=== PATIENT | male | born 1925 | race Caucasian/White ===

== ENCOUNTER 2017-03-06 15:39 | Observation (INO) | payer OTHER, MEDICARE ==
[~2017-03-06] VITALS: Ht 177.8 cm; Wt 66.0 kg
[~2017-03-06 15:39] MED LIST: ASPIR 8181 M1 PO; DYAZIDE, MA1 CAPSULE PO; OMEPRAZOLE20 M3 PO; SYNTHROID175 MCG PO
[2017-03-06 16:14] LABS: HEMATOCRIT 34.2 % (38.0-50.0); MCHC 33.9 G/DL (30.0-36.0); MCV 103.3 FL (86-99); PLATELET COUNT 199 K/uL (156-360); RBC DIS.WIDTH-CV 12.7 % (11.8-14.6); RBC DIS.WIDTH-SD 47.8 % (39-53); RED BLOOD COUNT 3.31 M/uL (4.00-5.50); WHITE BLOOD COUNT 6.9 K/uL (4.1-10.2)
[2017-03-06 16:25] LABS: CHLORIDE 100 mEq/L (99-109); POTASSIUM 3.9 mEq/L (3.7-5.4); SODIUM 134 mEq/L (136-147)
[2017-03-06 16:28] LABS: ANION GAP 12 MEQ/L (2-14); GLUCOSE 106 mg/dL (70-99)
[2017-03-06 16:31] LABS: GFR ESTIMATE (CALCULATED) 34 mL/min/; UREA NITROGEN (BUN) 30 mg/dL (9-23)
[2017-03-06 16:33] LABS: MAGNESIUM 1.8 mg/dL (1.3-2.7)
[2017-03-06 16:36] LABS: TROP-I INTERPRETATION NEGATIVE; TROPONIN-I 0.09 ng/mL (0.0-0.30)
[2017-03-06] MEDS ORDERED: OMEPRAZOLE20 MG PO (17:20)
[2017-03-06] MEDS ORDERED: SYNTHROID125 MCG PO (17:20)
[2017-03-06] MEDS ORDERED: PAROXETINE HCL10 MG PO (17:20)
[2017-03-06] MEDS ORDERED: VITAMIN B-6250 MG PO (17:21)
[2017-03-06 19:45] VITALS: BP 169/79
[2017-03-06 23:00] VITALS: BP 128/63
[2017-03-06 23:42] LABS: TOTAL BILIRUBIN 0.4 mg/dL (0.0-1.0)
[2017-03-06 23:43] LABS: ALKALINE PHOSPHATASE 39 IU/L (3-129)
[2017-03-06 23:45] LABS: DIRECT BILIRUBIN 0.1 mg/dL (0.0-0.3)
[2017-03-06 23:46] LABS: LIPASE 77 U/L (1.0-51.0)
[2017-03-06 23:50] LABS: TROP-I INTERPRETATION NEGATIVE; TROPONIN-I 0.19 ng/mL (0.0-0.30)
[2017-03-07 03:15] VITALS: BP 139/66
[2017-03-07 04:24] LABS: MCH 34.9 PG (29.0-34.0); MCHC 33.9 G/DL (30.0-36.0); MEAN PLAT.VOLUME 8.5 uM^3 (9.0-12.4); PLATELET COUNT 169 K/uL (156-360); RBC DIS.WIDTH-CV 12.9 % (11.8-14.6); RBC DIS.WIDTH-SD 48.6 % (39-53); RED BLOOD COUNT 3.01 M/uL (4.00-5.50); WHITE BLOOD COUNT 5.7 K/uL (4.1-10.2)
[2017-03-07 04:40] LABS: CHLORIDE 105 mEq/L (99-109); POTASSIUM 3.7 mEq/L (3.7-5.4); SODIUM 137 mEq/L (136-147)
[2017-03-07 04:42] LABS: GLUCOSE 92 mg/dL (70-99)
[2017-03-07 04:43] LABS: ANION GAP 8 MEQ/L (2-14)
[2017-03-07 04:44] LABS: TROP-I INTERPRETATION NEGATIVE; TROPONIN-I 0.17 ng/mL (0.0-0.30)
[2017-03-07 04:46] LABS: GFR ESTIMATE (CALCULATED) 34 mL/min/
[2017-03-07 04:47] LABS: UREA NITROGEN (BUN) 30 mg/dL (9-23)
[2017-03-07 07:40] VITALS: BP 146/67
[2017-03-07 12:30] VITALS: BP 174/78
[2017-03-07 15:30] VITALS: BP 165/71
[2017-03-07 19:22] VITALS: BP 154/97
[2017-03-07 23:00] VITALS: BP 164/75
[2017-03-08 04:37] VITALS: BP 143/65
[2017-03-08 06:37] LABS: HEMATOCRIT 32.8 % (38.0-50.0); MCH 34.4 PG (29.0-34.0); MCHC 33.2 G/DL (30.0-36.0); MCV 103.5 FL (86-99); MEAN PLAT.VOLUME 9.3 uM^3 (9.0-12.4); PLATELET COUNT 193 K/uL (156-360); RBC DIS.WIDTH-CV 12.8 % (11.8-14.6); RBC DIS.WIDTH-SD 48.5 % (39-53); RED BLOOD COUNT 3.17 M/uL (4.00-5.50); WHITE BLOOD COUNT 6.4 K/uL (4.1-10.2)
[2017-03-08 07:04] LABS: ANION GAP 7 MEQ/L (2-14); CHLORIDE 102 MEQ/L (99-109); GFR ESTIMATE (CALCULATED) 34 mL/min/; GLUCOSE 94 mg/dL (70-99); SAMPLE HEMOLYSIS CHECK 0; SAMPLE ICTERIC CHECK 0; SAMPLE LIPEMIA CHECK 0; SODIUM 137 MEQ/L (136-147); UREA NITROGEN (BUN) 33 mg/dL (9-23)
[2017-03-08 07:23] VITALS: BP 180/76
[2017-03-08] MEDS ORDERED: ATORVASTATIN CA40 MG PO (09:04)
[2017-03-08] MEDS ORDERED: LOPRESSOR25 MG PO (09:04)
== END 2017-03-08 10:50 | disposition home or self-care (01) ==
LOC: EME 15:39 → EDOF 18:42 → 4EAST 18:42 → EDOF 18:42 → 4EAST 19:43
PROVIDERS: Hospitalist; Internal Medicine
DX: I20.0 Unstable angina (principal); I48.0 Paroxysmal atrial fibrillation; I12.9 Hypertensive chronic kidney disease with stage 1 through stage 4 chronic kidney disease, or unspecified chronic kidney disease; N18.4 Chronic kidney disease, stage 4 (severe); E03.9 Hypothyroidism, unspecified; K21.9 Gastro-esophageal reflux disease without esophagitis; D63.1 Anemia in chronic kidney disease; D50.9 Iron deficiency anemia, unspecified; Z87.891 Personal history of nicotine dependence
CPT/HCPCS: 71020; 80048; 80076; 82948; 83690; 83735; 84443; 84484; 85027; 93005; 93306; 99281; 99285; G0378; J1650; J7030

== ENCOUNTER 2017-03-23 07:48 | Day surgery (SDC) | payer OTHER, MEDICARE ==
[~2017-03-23] VITALS: Ht 172.7 cm; Wt 68.0 kg
[~2017-03-23 07:48] MED LIST changes: +AMLODIPINE BESYL5 MG PO; +ATORVASTATIN CA40 MG PO; +CENTRUM SILVER1 EAC5 PO; +ELIQUIS2.5 MG PO; +LOPRESSOR25 MG PO; +METOPROLOL TART50 MG PO; +NEXIUM20 MG PO; +NITROSTAT0.4 MG SL; +OMEPRAZOLE20 MG PO; +PAROXETINE HCL10 MG PO; +SYNTHROID125 MCG PO; +VITAMIN B-6250 MG PO
[2017-03-23] MEDS ORDERED: NORVASC10 MG PO (13:02)
[2017-03-23] MEDS ORDERED: METOPROLOL TART25 MG PO (13:02)
[2017-03-23] MEDS ORDERED: ISOSORBIDE MONO30 MG PO (13:02)
== END 2017-03-23 18:30 | disposition home or self-care (01) ==
LOC: CATH 07:48
DX: I25.119 Atherosclerotic heart disease of native coronary artery with unspecified angina pectoris (principal); I48.0 Paroxysmal atrial fibrillation; Z79.01 Long term (current) use of anticoagulants; R06.02 Shortness of breath; I35.0 Nonrheumatic aortic (valve) stenosis; I34.0 Nonrheumatic mitral (valve) insufficiency; I10 Essential (primary) hypertension; R09.89 Other specified symptoms and signs involving the circulatory and respiratory systems; I12.9 Hypertensive chronic kidney disease with stage 1 through stage 4 chronic kidney disease, or unspecified chronic kidney disease; N18.3 Chronic kidney disease, stage 3 (moderate); F03.90 Unspecified dementia, unspecified severity, without behavioral disturbance, psychotic disturbance, mood disturbance, and anxiety; E78.2 Mixed hyperlipidemia; Z87.891 Personal history of nicotine dependence
CPT/HCPCS: C1769; C1887; J0360; J1644; J2250; J3010

== ENCOUNTER 2017-03-31 06:44 | Inpatient (IN) | payer OTHER, MEDICARE ==
[~2017-03-31] VITALS: Ht 180.3 cm; Wt 70.9 kg
[~2017-03-31 06:44] MED LIST changes: +ISOSORBIDE MONO30 MG PO; +METOPROLOL TART25 MG PO; +NORVASC10 MG PO
[2017-03-31 07:33] LABS: HEMATOCRIT 30.9 % (38.0-50.0); MCH 34.7 PG (29.0-34.0); MCHC 33.7 G/DL (30.0-36.0); MEAN PLAT.VOLUME 9.2 uM^3 (9.0-12.4); PLATELET COUNT 186 K/uL (156-360); RBC DIS.WIDTH-CV 13.1 % (11.8-14.6); RBC DIS.WIDTH-SD 49.8 % (39-53); WHITE BLOOD COUNT 9.2 K/uL (4.1-10.2)
[2017-03-31 07:35] LABS: D-DIMER ELISA 0.57 mg/L FEU (< 0.57); INTER. NORMALIZED RATIO 1.3; PROTHROMBIN TIME 13.7 (9.2-11.2)
[2017-03-31 07:58] LABS: ALKALINE PHOSPHATASE 43 IU/L (3-129); ANION GAP 9 MEQ/L (2-14); CHLORIDE 103 MEQ/L (99-109); GFR ESTIMATE (CALCULATED) 34 mL/min/; GLUCOSE 121 mg/dL (70-99); POTASSIUM 4.2 MEQ/L (3.7-5.4); SAMPLE HEMOLYSIS CHECK 0; SAMPLE ICTERIC CHECK 0; SAMPLE LIPEMIA CHECK 0; SODIUM 138 MEQ/L (136-147); TOTAL BILIRUBIN 0.6 MG/DL (0.0-1.0); UREA NITROGEN (BUN) 28 mg/dL (9-23)
[2017-03-31 08:05] LABS: TROP-I INTERPRETATION NEGATIVE; TROPONIN-I 0.12 ng/mL (0.0-0.30)
[2017-03-31 09:16] LABS: ADD MIUA? YES; BILIRUBIN NEGATIVE; BLOOD SMALL; COLOR YELLOW ((YELLOW)); GLUCOSE (STRIP) NEGATIVE; KETONES NEGATIVE; LEUKOCYTES NEGATIVE; NITRITE NEGATIVE; PROTEIN (STRIP) 30; SPECIFIC GRAVITY 1.023 (1.000-1.030); UROBILINOGEN 0.2 MG/DL (0.2-1.0)
[2017-03-31 09:17] LABS: BACTERIA NONE SEEN /HPF; EPITHELIAL CELLS NONE SEEN /HPF; MUCUS NONE SEEN /LPF; RED BLOOD CELLS 0-5 /HPF (0-5); UCUL ADDED? NO; WHITE BLOOD CELLS 0-5 /HPF (0-5)
[2017-03-31] MEDS ORDERED: ISOSORBIDE MONO30 MG PO (10:16)
[2017-03-31] MEDS ORDERED: ATORVASTATIN CA40 MG PO (10:16)
[2017-03-31] MEDS ORDERED: NORVASC10 MG PO (10:17)
[2017-03-31] MEDS ORDERED: VITAMIN B-6100 MG PO (10:19)
[2017-03-31 15:30] VITALS: BP 144/83
[2017-03-31 17:01] LABS: TROP-I INTERPRETATION POSITIVE; TROPONIN-I 4.08 ng/mL (0.0-0.30)
== END 2017-03-31 19:35 | disposition short-term general hospital (02) | DRG 302 ==
LOC: EME → EDBD 06:44 → EME 06:44 → EDOF 11:35
PROVIDERS: Emergency Medicine; Internal Medicine
DX: I25.110 Atherosclerotic heart disease of native coronary artery with unstable angina pectoris (principal); J18.9 Pneumonia, unspecified organism; I50.23 Acute on chronic systolic (congestive) heart failure; I45.10 Unspecified right bundle-branch block; I13.0 Hypertensive heart and chronic kidney disease with heart failure and stage 1 through stage 4 chronic kidney disease, or unspecified chronic kidney disease; I48.0 Paroxysmal atrial fibrillation; D53.9 Nutritional anemia, unspecified; R09.02 Hypoxemia; R94.31 Abnormal electrocardiogram [ECG] [EKG]; R10.10 Upper abdominal pain, unspecified; Z79.01 Long term (current) use of anticoagulants; N40.0 Benign prostatic hyperplasia without lower urinary tract symptoms; N18.9 Chronic kidney disease, unspecified; E03.9 Hypothyroidism, unspecified; K21.9 Gastro-esophageal reflux disease without esophagitis; E78.5 Hyperlipidemia, unspecified; Z87.891 Personal history of nicotine dependence; Z85.9 Personal history of malignant neoplasm, unspecified
CPT/HCPCS: 71010; 80053; 81003; 83605; 84484; 85027; 85379; 85610; 87040; 93005; 99281; 99285; J0696; J1940; J7050